=== PATIENT | male | born 1990 | race Caucasian/White ===

== ENCOUNTER 2017-07-02 20:31 | Emergency (ER) | payer SELFPAY ==
[~2017-07-02] VITALS: Ht 180.3 cm; Wt 81.6 kg
[2017-07-02 20:42] VITALS: BP 128/89
== END 2017-07-02 21:00 | disposition left against medical advice (07) ==
LOC: ER 20:48
DX: R45.851 Suicidal ideations (principal); Z53.21 Procedure and treatment not carried out due to patient leaving prior to being seen by health care provider

== ENCOUNTER 2017-07-17 13:05 | Emergency (ER) | payer SELFPAY ==
[~2017-07-17] VITALS: Ht 180.3 cm; Wt 88.5 kg
--- NOTE | 2017-07-17 13:53 | PHYS DOC ---
General Chief Complaint: SHOULDER INJURY Stated Complaint: RT SHOULDER PAIN Time Seen by MD: 13:08 Source: patient, old records Exam Limitations: no limitations Problems: History of Present Illness Initial Comments Patient is a 26-year-old male who comes the ED complaining of right shoulder injury. Patient states that earlier today he was doing work around the house when he tried to lift a large piece of plywood with his right shoulder. He states that he had an under hand aws architect on it picking it up from behind his body and as he engage the weight of the wood he felt a clicking and popping in his right shoulder. He says he felt as if it went out of the socket and popped back in, he 's had persistent posterolateral and anterolateral lateral right shoulder discomfort since that time. He initially had some numbness and tingling in his right fingers but that has resolved he has had no weakness. He is unwilling or unable to test range of motion due to severe discomfort. Patient has history of polysubstance abuse he does not appear to be altered in any way and denies any recent use he has a new job he starting tomorrow. Onset: this morning Severity: severe Pain/Injury Location: right shoulder Method of Injury: twisted Modifying Factors: worse with jarring, worse with movement, improves with rest Allergies: Coded Allergies: penicillin (Unverified Allergy, Unknown, 04/26/15) Past Medical History Medical History: other (anxiety, PTSD, polysubstance abuse) Surgical History: noncontributory Social History Smoker: cigarettes Alcohol: occasionally Drugs: heroin, other (methamphetamine denies any recent use of illicit substances.) Review of Systems Constitutional: denies chills, denies diaphoresis, denies fever Respiratory: denies cough, denies shortness of breath Cardiovascular: denies chest pain, denies palpitations Gastrointestinal: denies diarrhea, denies nausea, denies vomiting Musculoskeletal: see HPI Psychiatric/Neurological: see HPI Physical Exam General Appearance: WD/WN, no apparent distress Neck: non-tender, supple Cardiovascular/Respiratory: normal peripheral pulses, normal breath sounds, no respiratory distress Back: no CVA tenderness, no vertebral tenderness Shoulder: soft tissue tenderness (generalized right shoulder soft tissue tenderness no obvious deformity no bony tenderness or palpable deformity. Range of motion not tested due to patient pain tolerance patient holds the arm adducted and internally rotated.) Elbow/Forearm: normal inspection, non-tender Neurologic/Tendon: normal sensation, normal motor functions, responds to pain Psychiatric: alert, oriented x 3 Orders, Labs, Meds PATIENT: YIN WHALEN ACCOUNT: [id number] : 1990 LOCATION: ER AGE: 26 SEX: M EXAM STATUS: REG ER ORD. PHYSICIAN: BONITA ADORNO DO REASON: trauma/pain PROCEDURE: SHOULDER 2+V RIGHT EXAM: Right shoulder 3 views. HISTORY: Right shoulder pain after lifting injury. COMPARISON: None. FINDINGS: The subacromial space appears mildly widened which can be seen in the setting of joint effusion or be a projectional artifact. No fractures are identified. Joint spaces appear maintained. IMPRESSION: 1. Correlate for a glenohumeral effusion. No fracture. DICTATED AND SIGNED BY: FLOYD RUSSELL MD DATE: 07/17/17 3206 CC: PCP,NO; BONITA ADORNO DO ~ I discussed icing activity restriction and use of sling. I discussed prescription and [id number] medications, I discussed tobacco cessation. Signs and symptoms to monitor and indications for urgent return to the department were discussed and the patient's questions were answered she expressed agreement and understanding with the treatment plan. He was neurovascularly intact after splint placed. Departure Time of Disposition: 14:18 Disposition: 01 HOME, SELF-CARE Diagnosis: Internal Derangement Right Shoulder NOS Condition: STABLE Patient Instructions: KIMBERLI - Routine Care for Injuries, [id number], Shoulder Immobilizer Additional Instructions: KIMBERLI, see handout. Wear the shoulder immobilizer except when bathing until follow-up with your doctor. No use of right arm until cleared by your doctor. [id number] ibuprofen for baseline discomfort. Prescription: Wade 7.5 mg quantity 20 You will need to follow-up with a doctor: If you're insurance requires follow-up with your primary care doctor for referral to orthopedics or for MRI evaluation if not improving. You may choose to follow up with [facility] orth[facility]ics: , call today to schedule next available appointment. Return to ED with new or changing symptoms. BONITA ADORNO DO Jul 17, 2017 13:53
--- NOTE | 2017-07-17 14:01 | RAD ---
EXAM: Right shoulder 3 views. HISTORY: Right shoulder pain after lifting injury. COMPARISON: None. FINDINGS: The subacromial space appears mildly widened which can be seen in the setting of joint effusion or be a projectional artifact. No fractures are identified. Joint spaces appear maintained. IMPRESSION: 1. Correlate for a glenohumeral effusion. No fracture.
[2017-07-17] MEDS ORDERED: HYDR-965 PO (14:24)
[2017-07-17] MEDS ORDERED: MORPHINE SULFATE 10 MG/ML SYRINGE. IM ONE (14:45)
[2017-07-17] MEDS ORDERED: KETOROLAC 60 MG/2 ML VIAL. IM ONE (14:45)
[2017-07-17 14:49] VITALS: BP 131/86
== END 2017-07-17 14:52 | disposition home or self-care (01) ==
LOC: ER 13:05
DX: S49.91XA Unspecified injury of right shoulder and upper arm, initial encounter (principal); M24.811 Other specific joint derangements of right shoulder, not elsewhere classified; F17.210 Nicotine dependence, cigarettes, uncomplicated; F43.10 Post-traumatic stress disorder, unspecified; F41.9 Anxiety disorder, unspecified; F19.10 Other psychoactive substance abuse, uncomplicated; F15.10 Other stimulant abuse, uncomplicated; Z88.0 Allergy status to penicillin; X50.9XXA Other and unspecified overexertion or strenuous movements or postures, initial encounter; Y93.89 Activity, other specified; Y99.8 Other external cause status; Y92.009 Unspecified place in unspecified non-institutional (private) residence as the place of occurrence of the external cause
CPT/HCPCS: 73030; 96372; 99284; J1885; J2270

== ENCOUNTER 2017-09-09 19:15 | Emergency (ER) | payer SELFPAY ==
[~2017-09-09 19:15] MED LIST: HYDR-965 PO
--- NOTE | 2017-09-09 19:39 | ED.ADGEN ---
Past History Past Medical History: Anxiety, Depression, Other Past Surgical History: Other Smoking: Cigarettes Alcohol Use: None Drug Use: Heroin, Marijuana, Methamphetamine Adult General Chief Complaint Chief Complaint " .. I been sick the past 3 days.. congestion, cough, aches... No I did not get a flu shot .. I think they are stupid... yes I do smoke.." HPI HPI Patient is a 26 year old male who presents with above hx and complaints of myalgia, malaise, congestion, rhinorrhea, pharyngitis, fever, nonproductive cough, and arthralgia the past 3 days. Patient past has polysubstance abuse history. Patient denies immunosuppression. Patient does continue to smoke. Does not get yearly flu vaccination or follow-up for Dr. Patient last seen in ED in March 2015. Patient denies to be ill contacts or travel. Review of Systems Review of Systems Constitutional: History of fever or chills [] Eyes: Denies change in visual acuity, redness, or eye pain [] HENT: History of nasal congestion or sore throat []or shortness of breath [] Cardiovascular: No additional information not addressed in HPI [] GI: Denies abdominal pain, nausea, vomiting, bloody stools or diarrhea [] : Denies dysuria or hematuria [] Musculoskeletal: History of back pain or joint pain [] Integument: Denies rash or skin lesions [] Neurologic: Denies headache, focal weakness or sensory changes [] Endocrine: Denies polyuria or polydipsia [] All other systems were reviewed and found to be within normal limits, except as documented in this note. Family History Family History Noncontributory Current Medications Current Medications Current Medications Medications (Trade) Dose Ordered Sig/Derik Start Time Stop Time Status Last Admin Dose Admin Ibuprofen (Motrin) 600 mg 1X ONCE 09/09/17 21:00 09/09/17 21:01 DC 09/09/17 21:09 600 MG Prednisone (Prednisone) 20 mg STK-MED ONCE 09/09/17 21:06 09/09/17 21:07 DC None Allergies Allergies Allergies Coded Allergies Type Severity Reaction Last Updated Verified penicillin Allergy Unknown 04/26/15 No Physical Exam Physical Exam Constitutional: Mild to moderate distress, non-toxic appearance. [] HENT: Normocephalic, atraumatic, bilateral external ears normal, oropharynx moist, injected pharynx, no oral exudates, nose swollen turbinates and rhinorrhea[] Eyes: PERRLA, EOMI, conjunctiva normal, no discharge. [] Neck: Normal range of motion, no tenderness, supple, no stridor. [] Cardiovascular:Heart rate regular rhythm, no murmur [] Lungs & Thorax: Bilateral breath sounds scattered wheezes auscultation [] Abdomen: Bowel sounds normal, soft, no tenderness, no masses, no pulsatile masses. [] Skin: Warm, dry, no erythema, no rash. [] Back: No tenderness, no CVA tenderness. [] Extremities: No tenderness, no cyanosis, no clubbing, ROM intact, no edema. [] Neurologic: Alert and oriented X 3, normal motor function, normal sensory function, no focal deficits noted. [] Psychologic: Affect reviewed and argumentative with nurse, judgement normal, mood normal. [] Current Patient Data Vital Signs Vital Signs Date Time Temp Pulse Resp B/P (MAP) Pulse Ox O2 Delivery O2 Flow Rate FiO2 09/09/17 21:10 96 18 116/70 (85) 98 Room Air 09/09/17 19:25 98.5 Lab Results Laboratory Tests Test 09/09/17 19:30 Influenza Type A (Rapid) Negative (NEGATIVE) Influenza Type B (Rapid) Negative (NEGATIVE) Group A Streptococcus Rapid Negative (NEGATIVE) EKG EKG [] Radiology/Procedures Radiology/Procedures [] Course & Med Decision Making Course & Med Decision Making Pertinent Labs and Imaging studies reviewed. (See chart for details). Patient push fluids. Patient take [id number] Tylenol and ibuprofen as needed for myalgia and fever complaints. Patient to stop smoking. Patient to gargle with Listerine 4 times a day. Patient encouraged to get flu vaccination when over this acute illness. Patient recommended the use of Benadryl for congestion and rhinorrhea. Patient follow-up primary care. Return if any concerns. [] Final Impression Final Impression 1. Viral Syndrome[] Problems: Dragon Disclaimer Dragon Disclaimer This electronic medical record was generated, in whole or in part, using a voice recognition dictation system. JJ TALBERT MD Sep 09, 2017 19:39
[2017-09-09 20:21] LABS: INFLUENZA A PATIENT NEGATIVE (NEGATIVE); INFLUENZA B PATIENT NEGATIVE (NEGATIVE)
[2017-09-09] MEDS ORDERED: predniSONE 10 MG TABLET PO ONE (21:00)
[2017-09-09] MEDS ORDERED: IBUPROFEN 600 MG TABLET. PO ONE (21:00)
[2017-09-09] MEDS ORDERED: predniSONE 20 MG TABLET ONE (21:06)
[2017-09-09 21:10] VITALS: BP 116/70
== END 2017-09-09 21:13 | disposition home or self-care (01) ==
LOC: ER 19:15
DX: B34.9 Viral infection, unspecified (principal); M25.50 Pain in unspecified joint; F17.210 Nicotine dependence, cigarettes, uncomplicated; F15.10 Other stimulant abuse, uncomplicated; F12.10 Cannabis abuse, uncomplicated; F19.10 Other psychoactive substance abuse, uncomplicated; Z88.0 Allergy status to penicillin
CPT/HCPCS: 87070; 87804; 87880; 99284; J7512

== ENCOUNTER 2017-12-08 12:29 | Emergency (ER) | payer SELFPAY ==
[2017-12-08 12:45] VITALS: BP 148/87
[2017-12-08] MEDS ORDERED: KETOROLAC 60 MG/2 ML VIAL. IM ONE ×2 (13:31→13:50)
[2017-12-08] MEDS ORDERED: META-21 PO (13:32)
[2017-12-08] MEDS ORDERED: Percogesic PO (13:32)
--- NOTE | 2017-12-08 13:32 | PHYS DOC ---
Past History Past Medical History: Anxiety, Depression, Other Past Surgical History: Other Smoking: Cigarettes Alcohol Use: None Drug Use: Heroin, Marijuana, Methamphetamine Adult General Chief Complaint Chief Complaint: BACK PAIN OR INJURY [facility] HPI 27-year-old male patient states he had low back pain and injury 1 year ago and had MRI several abnormality. Patient states he wanted to prevent of a fall and twisted her back last night and since then feeling pain in his back that getting admitted with taking 2 hydrocodone 10 mg that was left over from his previous ER visit. Patient states the pain radiated to posterior of left thigh and denies focal neurodeficit and urinary and bowel incontinence. Patient states the pain getting worse with standing up and movement of his back. Review of Systems Review of Systems Constitutional: Denies fever or chills [] Eyes: Denies change in visual acuity, redness, or eye pain [] HENT: Denies nasal congestion or sore throat [] Respiratory: Denies cough or shortness of breath [] Cardiovascular: No additional information not addressed in HPI [] GI: Denies abdominal pain, nausea, vomiting, bloody stools or diarrhea [] : Denies dysuria or hematuria [] Musculoskeletal: Reports back pain Integument: Denies rash or skin lesions [] Neurologic: Denies headache, focal weakness or sensory changes [] Endocrine: Denies polyuria or polydipsia [] All other systems were reviewed and found to be within normal limits, except as documented in this note. Allergies Allergies Allergies Coded Allergies Type Severity Reaction Last Updated Verified penicillin Allergy Unknown 04/26/15 No Physical Exam Physical Exam Constitutional: Well developed, well nourished, mild distress, non-toxic appearance. [] HENT: Normocephalic, atraumatic Eyes: PERRLA, EOMI, conjunctiva normal, no discharge. [] Neck: Normal range of motion, no tenderness, supple, no stridor. [] Cardiovascular:Heart rate regular rhythm, no murmur [] Lungs & Thorax: Bilateral breath sounds clear to auscultation [] Abdomen: Bowel sounds normal, soft, no tenderness, no masses, no pulsatile masses. [] Skin: Warm, dry, no erythema, no rash. [] Back: No midline tenderness or deformity, limited range of motion with pain, no CVA tenderness] Extremities: No tenderness, no cyanosis, no clubbing, ROM intact, no edema. [] Neurologic: Alert and oriented X 3, normal motor function, normal sensory function, no focal deficits noted. [] Psychologic: Anxious, judgement normal, mood normal. [] EKG EKG [] Radiology/Procedures Radiology/Procedures [] Course & Med Decision Making Course & Med Decision Making Evaluation of patient in ER showed 7-year-old female patient with history of chronic back pain complaining of acute back pain since last night after back movements. Patient has frequent emergency room visits and history of methamphetamine abuse and suicidal ideation and depression according to EMR. Patient did not want prescription of Flexeril and asking for Soma. Patient had Toradol in ER and prescription of Percogesic and Skelaxin was given psychiatric to apply ice on his back and follow up with primary care physician. Dragon Disclaimer Dragon Disclaimer This electronic medical record was generated, in whole or in part, using a voice recognition dictation system. Departure Departure: Impression: Primary Impression: Acute exacerbation of chronic low back pain Additional Impressions: Tobacco abuse Tobacco abuse counseling Disposition: HOME, SELF-CARE (At 1350) Condition: STABLE Referrals: PCP,NO (PCP) Patient Instructions: Chronic Back Pain, Lumbosacral Strain, Smoking Cessation Additional Instructions: Apply ice on the affected area Follow-up with your primary care physician in 3-5 days Return to ER if not getting better Scripts [Percogesic] No Conflict Check 1 TAB PO QID Y for PAIN, #14 Prov: CYNTHIA TRAN MD 12/08/17 Metaxalone (SKELAXIN) 800 Mg Tablet 1 TAB PO TID, #30 TAB Prov: CYNTHIA TRAN MD 12/08/17 Problem Qualifiers CYNTHIA TRAN MD Dec 08, 2017 13:32
== END 2017-12-08 13:59 | disposition home or self-care (01) ==
LOC: ER 12:29
DX: M54.5 Low back pain (principal); G89.29 Other chronic pain; F41.9 Anxiety disorder, unspecified; F32.9 Major depressive disorder, single episode, unspecified; F17.210 Nicotine dependence, cigarettes, uncomplicated; F12.10 Cannabis abuse, uncomplicated; F15.10 Other stimulant abuse, uncomplicated; F11.10 Opioid abuse, uncomplicated; Z71.6 Tobacco abuse counseling; Z88.0 Allergy status to penicillin; X50.1XXA Overexertion from prolonged static or awkward postures, initial encounter; Y93.89 Activity, other specified; Y99.8 Other external cause status; Y92.89 Other specified places as the place of occurrence of the external cause
CPT/HCPCS: 96372; 99283; J1885

== ENCOUNTER 2018-04-04 19:17 | Emergency (ER) | payer SELFPAY ==
[~2018-04-04] VITALS: Ht 180.3 cm; Wt 95.3 kg
[~2018-04-04 19:17] MED LIST changes: +META-21 PO; +Percogesic PO
--- NOTE | 2018-04-04 19:31 | ED.ADGEN ---
Past History Past Medical History: No Pertinent History, Anxiety, Other Past Surgical History: Other Smoking: Cigarettes Alcohol Use: None Drug Use: Marijuana Adult General Chief Complaint Chief Complaint ".. I just having bad anxiety... I been off my meds.. My is a lead software tester....and I follow with Dr. Hinson... HPI HPI Patient is a 27 year old male who presents with above hx and complaints anxiety. Multiple social stressor. Denies suicidal or homicidal ideation. Hx. past methamphetamine use. Tobacco and marijuana use. Poor historian. Impatient. Review of Systems Review of Systems Constitutional: Denies fever or chills [] Complaints of anxiety. Eyes: Denies change in visual acuity, redness, or eye pain [] HENT: Denies nasal congestion or sore throat [] Respiratory: Denies cough or shortness of breath [] Cardiovascular: No additional information not addressed in HPI [] GI: Denies abdominal pain, nausea, vomiting, bloody stools or diarrhea [] : Denies dysuria or hematuria [] Musculoskeletal: Denies back pain or joint pain [] Integument: Denies rash or skin lesions [] Neurologic: Denies headache, focal weakness or sensory changes [] Endocrine: Denies polyuria or polydipsia [] All other systems were reviewed and found to be within normal limits, except as documented in this note. Family History Family History Patient left before completing history Current Medications Current Medications Has been on Xanax is currently out Allergies Allergies Allergies Coded Allergies Type Severity Reaction Last Updated Verified penicillin Allergy Unknown 04/26/15 No Physical Exam Physical Exam Constitutional: Well developed, well nourished, no obvious acute distress, non- toxic appearance. [] HENT: Normocephalic, atraumatic, bilateral external ears normal, oropharynx moist, no oral exudates, nose normal. [] Eyes: PERRLA, EOMI, conjunctiva normal, no discharge. [] [] Psychologic: Affect anxious, judgement normal, mood depressed. Denies suicidal or homicidal ideation[] Patient ambulatory at time of leaving the ED before completing evaluation-with his mother Current Patient Data Vital Signs Vital Signs Date Time Temp Pulse Resp B/P (MAP) Pulse Ox O2 Delivery O2 Flow Rate FiO2 04/04/18 19:32 98.0 91 21 98 Room Air Lab Results Laboratory Tests Test 04/04/18 19:59 Urine Collection Type Unknown Urine Color Yellow Urine Clarity Clear Urine pH 6.5 Urine Specific [place] 1.025 Urine Protein Neg (NEG-TRACE) Urine Glucose (UA) Neg mg/dL (NEG) Urine Ketones (Stick) Neg mg/dL (NEG) Urine Blood Neg (NEG) Urine Nitrite Neg (NEG) Urine Bilirubin Neg (NEG) Urine Urobilinogen Dipstick 0.2 mg/dL (0.2 mg/dL) Urine Leukocyte Esterase Neg (NEG) Urine RBC 0 /HPF (0-2) Urine WBC Occ /HPF (0-4) Urine Squamous Epithelial Cells Occ /LPF Urine Bacteria 0 /HPF (0-FEW) Urine Opiates Screen Neg (NEG) Urine Methadone Screen Neg (NEG) Urine Barbiturates Neg (NEG) Urine Phencyclidine Screen Neg (NEG) Urine Amphetamine/Methamphetamine Neg (NEG) Urine Benzodiazepines Screen Pos (NEG) Urine Cocaine Screen Neg (NEG) Urine Cannabinoids Screen Neg (NEG) Urine Ethyl Alcohol Neg (NEG) Refused labs and urine left before completing exam. EKG EKG (Left before completing exam[] Radiology/Procedures Radiology/Procedures Left Before completing exam[] Course & Med Decision Making Course & Med Decision Making Pertinent Labs and Imaging studies reviewed. (See chart for details) Note Pt. refused labs and urine- Left without completing tx. - States he was going to follow up with Dr. Hinson to get a renewal of his Xanax meds. Encourage patient return at any time. [] Final Impression Final Impression 1. Anxiety[] Dragon Disclaimer Dragon Disclaimer This electronic medical record was generated, in whole or in part, using a voice recognition dictation system. JJ TALBERT MD Apr 04, 2018 19:31
[2018-04-04 19:32] VITALS: BP 146/84
[2018-04-04 20:45] LABS: AMPHETAMINE/METHAMPHETAMINE NEG (NEG); BARBITURATES NEG (NEG); BENZODIAZEPINES POS (NEG); CANNABINOIDS NEG (NEG); COCAINE NEG (NEG); METHADONE NEG (NEG); OPIATES NEG (NEG); PHENCYCLIDINE NEG (NEG)
[2018-04-04 20:52] LABS: BILIRUBIN,URINE NEG (NEG); CLARITY,URINE CLEAR; COLOR,URINE YELLOW; GLUCOSE,URINE NEG (NEG); NITRITE,URINE NEG (NEG); RBC,URINE 0 /HPF (0-2); UROBILINOGEN,URINE 0.2 mg/dL (0.2 mg/dL)
[2018-04-04 20:53] LABS: BACTERIA,URINE 0 /HPF (0-FEW); SQUAMOUS EPITHELIAL CELL,UR OCC /LPF; WBC,URINE OCC /HPF (0-4)
== END 2018-04-04 20:05 | disposition home or self-care (01) ==
LOC: ER 19:17
DX: F41.9 Anxiety disorder, unspecified (principal); F15.90 Other stimulant use, unspecified, uncomplicated; F12.10 Cannabis abuse, uncomplicated; F17.210 Nicotine dependence, cigarettes, uncomplicated; Z88.0 Allergy status to penicillin
CPT/HCPCS: 36415; 80307; 81001; 99284; G0479

== ENCOUNTER 2020-08-16 00:09 | Emergency (ER) | payer SELFPAY ==
[~2020-08-16] VITALS: Ht 180.3 cm; Wt 95.5 kg
[~2020-08-16 00:09] MED LIST changes: +HYDR-3166 PO; -HYDR-965 PO
[2020-08-16] MEDS ORDERED: LIDOCAINE 2% TOPICAL JELLY 5GM TUBE. TP ONE (00:35)
[2020-08-16] MEDS ORDERED: HYDROmorphone PF 1 MG/ML DISP.SYRIN ONE (00:36)
[2020-08-16] MEDS ORDERED: DIPH,PERTUSS(ACELL),TET VAC/PF 0.5 ML SYRINGE. VAX IM ONE ×2 (00:38→01:30)
[2020-08-16] MEDS ORDERED: IBUP600T16 PO (00:48)
[2020-08-16] MEDS ORDERED: HYDR-3165 PO (00:48)
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
[2020-08-16] MEDS ORDERED: NEOMY/BACITR/POLYMYXIN OINT PACKET. TP ONE (01:00)
[2020-08-16] MEDS ORDERED: ONDANSETRON ODT 4 MG TAB.RAPDIS PO ONE (01:00)
[2020-08-16] MEDS ORDERED: HYDROcodone/APAP 5/325MG 1 TAB TABLET PO ONE (01:00)
[2020-08-16] MEDS ORDERED: HYDROmorphone PF 1 MG/ML DISP.SYRIN IM ONE (01:00)
== END 2020-08-16 01:35 | disposition home or self-care (01) ==
LOC: ER 00:09
DX: T23.201A Burn of second degree of right hand, unspecified site, initial encounter (principal); R20.2 Paresthesia of skin; L53.9 Erythematous condition, unspecified; F41.9 Anxiety disorder, unspecified; F12.90 Cannabis use, unspecified, uncomplicated; F17.210 Nicotine dependence, cigarettes, uncomplicated; Z98.890 Other specified postprocedural states; X12.XXXA Contact with other hot fluids, initial encounter; Y93.89 Activity, other specified; Y92.89 Other specified places as the place of occurrence of the external cause; Y99.8 Other external cause status
CPT/HCPCS: 90471; 90715; 96372; 99284; J1170; Q0162

== ENCOUNTER 2021-12-10 00:48 | Emergency (ER) | payer SELFPAY ==
[~2021-12-10] VITALS: Ht 175.3 cm; Wt 73.8 kg
[~2021-12-10 00:48] MED LIST changes: +HYDR-3165 PO; +IBUP600T16 PO
--- NOTE | 2021-12-10 01:21 | PHYS DOC ---
Past History Past Medical History: No Pertinent History, Anxiety, Other (TIP MAGANA DO) Past Surgical History: Other (TIP MAGANA DO) Smoking: Cigarettes Alcohol Use: None Drug Use: Marijuana (TIP MAGANA DO) General Adult EDM: Chief Complaint: DRUG ABUSE HPI: HPI: 31-year-old male presents via EMS for drug abuse. The patient is not making any sense he is saying random things. He does admit to hearing some voices. He does not admit to any specific drugs. He states he usually takes multiple Valium a day but did not take any today. He provides no other useful history. (TIP MAGANA DO) Review of Systems: Review of Systems: Constitutional: Denies fever or chills Eyes: Denies change in visual acuity HENT: Denies nasal congestion or sore throat Respiratory: Denies cough or shortness of breath Cardiovascular: Denies chest pain or edema GI: Denies abdominal pain, nausea, vomiting, bloody stools or diarrhea : Denies dysuria Musculoskeletal: Denies back pain or joint pain Integument: Denies rash Neurologic: Denies headache, focal weakness or sensory changes Endocrine: Denies polyuria Lymphatic: Denies swollen glands Psychiatric: Hallucinations (TIP MAGANA DO) Current Medications: Current Meds: Current Medications Medications (Trade) Dose Ordered Sig/Derik Start Time Stop Time Status Last Admin Dose Admin Lorazepam (Ativan Inj) 4 mg 1X ONCE 12/10/21 01:00 12/10/21 01:01 DC (TIP MAGANA DO) Allergies: Allergies: Allergies Coded Allergies Type Severity Reaction Last Updated Verified penicillin Allergy Intermediate 08/16/20 No (TIP MAGANA DO) Physical Exam: PE: Constitutional: Well developed, well nourished, crying, non-toxic appearance. [] HENT: Normocephalic, atraumatic, bilateral external ears normal, oropharynx moist, no oral exudates, nose normal. [] Eyes: PERRLA, EOMI, conjunctiva normal, no discharge. [] Neck: Normal range of motion, no tenderness, supple, no stridor. [] Cardiovascular: Heart rate 83, regular rhythm, no murmur [] Lungs & Thorax: Bilateral breath sounds clear to auscultation [] Abdomen: Bowel sounds normal, soft, no tenderness, no masses, no pulsatile masses. [] Skin: Warm, dry, no erythema, no rash. [] Back: No tenderness, no CVA tenderness. [] Extremities: No tenderness, no cyanosis, no clubbing, ROM intact, no edema. [] Neurologic: Alert and oriented X 3, normal motor function, normal sensory function, no focal deficits noted. [] Psychologic: Affect paranoid, judgement impaired, mood tearful. [] (TIP MAGANA DO) EKG: EKG: [] (TIP MAGANA DO) Radiology/Procedures: Radiology/Procedures: [] (TIP AMGANA DO) Heart Score: C/O Chest Pain: N/A Risk Factors: Risk Factors: DM, Current or recent (<one month) smoker, HTN, HLP, family history of CAD, obesity. Risk Scores: Score 0 - 3: 2.5% MACE over next 6 weeks - Discharge Home Score 4 - 6: 20.3% MACE over next 6 weeks - Admit for Clinical Observation Score 7 - 10: 72.7% MACE over next 6 weeks - Early Invasive Strategies (TIP MAGANA DO) C/O Chest Pain: N/A (CARLY CLIFFORD MD) Course & Med Decision Making: Course & Med Decision Making Pertinent Labs and Imaging studies reviewed. (See chart for details) The patient's father showed up and states that the patient has no mental health history. He started having these types of hallucinations only when doing drugs. The patient was given Ativan which did not seem to help the patient calm down. He was then given 10 mg of Zyprexa IV. The patient was able to calm down and go to sleep. We will let him rest and let the intoxicating drugs wear off. We will reevaluate the need for behavioral health team evaluation at that time. At shift change, the patient is not arousable enough for reevaluation. I am signing out to dayshift at 0600. [] (TIP MAGANA DO) Course & Med Decision Making Accepted patient care at shift change. Patient sleeping in bed, pending reevaluation when he wakes up Patient eloped from emergency department at the ambulance bay. PD notified. Patient's IV found in bedding. (CARLY CLIFFORD MD) Dragon Disclaimer: Dragon Disclaimer: This electronic medical record was generated, in whole or in part, using a voice recognition dictation system. (TIP MAGANA DO) Departure Departure: Impression: Primary Impression: Methamphetamine addiction Additional Impression: Hallucination, drug-induced Disposition: 07 LEFT AWOL/ELOPED Condition: STABLE Referrals: KRZYSZTOF CARLIN DO (PCP) TIP MAGANA DO Dec 10, 2021 01:21 CARLY CLIFFORD MD Dec 10, 2021 08:15
[2021-12-10] MEDS ORDERED: OLANZapine IM 10 MG VIAL. IM ONE (01:30)
[2021-12-10 01:39] LABS: BASO # 0.1 x10^3/uL (0.0-0.2); BASO % 1 % (0-3); EOS # 0.3 x10^3/uL (0.0-0.7); EOS % 5 % (0-3); HEMATOCRIT 43.9 % (39.0-53.0); LYMPH # 2.2 x10^3/uL (1.0-4.8); LYMPH % 30 % (24-48); MEAN CORPUSCULAR HEMOGLOBIN 29 pg (25-35); MEAN CORPUSCULAR HGB CONC 34 g/dL (31-37); MEAN CORPUSCULAR VOLUME 86 fL (79-100); MONO # 0.6 x10^3/uL (0.0-1.1); MONO % 9 % (0-9); NEUT # 4.1 x10^3uL (1.8-7.7); NEUT % 56 % (31-73); PLATELET COUNT 222 x10^3/uL (140-400); RED BLOOD COUNT 5.11 x10^6/uL (4.30-5.70); RED CELL DISTRIBUTION WIDTH 13.3 % (11.5-14.5); WHITE BLOOD COUNT 7.4 x10^3/uL (4.0-11.0)
[2021-12-10 01:44] LABS: CALCIUM 8.8 mg/dL (8.5-10.1); CREATININE 1.3 mg/dL (0.7-1.3); GFR 63.6; POTASSIUM 3.5 mmol/L (3.5-5.1)
[2021-12-10 01:50] LABS: ALBUMIN 3.5 g/dL (3.4-5.0); ALBUMIN/GLOBULIN RATIO 1.2 (1.0-1.7); TOTAL BILIRUBIN 0.3 mg/dL (0.2-1.0); TOTAL PROTEIN 6.5 g/dL (6.4-8.2)
[2021-12-10 11:33] VITALS: BP 131/70
== END 2021-12-10 11:37 | disposition left against medical advice (07) ==
LOC: ER 00:48
DX: F15.20 Other stimulant dependence, uncomplicated (principal); R44.0 Auditory hallucinations; F41.9 Anxiety disorder, unspecified; F17.210 Nicotine dependence, cigarettes, uncomplicated; F12.10 Cannabis abuse, uncomplicated; Z88.0 Allergy status to penicillin
CPT/HCPCS: 36415; 80053; 85025; 96372; 99284; J2060; J3490; 99282

== ENCOUNTER 2021-12-16 17:24 | Emergency (ER) | payer SELFPAY ==
[~2021-12-16] VITALS: Ht 175.3 cm; Wt 73.8 kg
[2021-12-16 17:26] VITALS: BP 157/80
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
== END 2021-12-16 18:03 ==
LOC: ER 17:24
DX: F15.20 Other stimulant dependence, uncomplicated (principal); F41.9 Anxiety disorder, unspecified; F17.210 Nicotine dependence, cigarettes, uncomplicated; F12.10 Cannabis abuse, uncomplicated; Z88.0 Allergy status to penicillin
CPT/HCPCS: 99283